=== PATIENT | male | born 1980 | race African-American/Black ===

== ENCOUNTER 2018-03-18 11:55 | Emergency (ER) | payer OTHER ==
[~2018-03-18] VITALS: Ht 185.4 cm; Wt 95.5 kg
[~2018-03-18 11:55] MED LIST: NOCURR
[2018-03-18] MEDS ORDERED: KETOROLAC TROMETHAMINE 10 MG TABLET PO ONE (13:30)
[2018-03-18 14:01] VITALS: BP 132/62
== END 2018-03-18 14:01 | disposition home or self-care (01) ==
LOC: EMS 11:55
DX: S20.212A Contusion of left front wall of thorax, initial encounter (principal); F17.210 Nicotine dependence, cigarettes, uncomplicated; F12.90 Cannabis use, unspecified, uncomplicated; V73.6XXA Passenger on bus injured in collision with car, pick-up truck or van in traffic accident, initial encounter; Y93.89 Activity, other specified; Y92.811 Bus as the place of occurrence of the external cause; Y99.8 Other external cause status
CPT/HCPCS: 99283

== ENCOUNTER 2022-06-23 18:55 | Emergency (ER) | payer MEDICAID ==
[~2022-06-23] VITALS: Ht 188 cm; Wt 70.5 kg
[2022-06-23] MEDS ORDERED: KETOROLAC TROMETHAMINE 60 MG/2 ML VIAL IM ONE (19:30)
[2022-06-23] MEDS ORDERED: BACLOFEN 10 MG TABLET PO ONE (19:30)
[2022-06-23] MEDS ORDERED: ACETAMINOPHEN/CODEINE 300-30 MG TABLET PO ONE (19:30)
[2022-06-23 20:37] VITALS: BP 129/83
[2022-06-23] MEDS ORDERED: BACL10TA PO (20:38)
[2022-06-23] MEDS ORDERED: ACET-2080 PO (20:38)
[2022-06-23] MEDS ORDERED: IBUP-1554 PO (20:38)
== END 2022-06-23 20:54 | disposition home or self-care (01) ==
LOC: EMS 18:55
DX: S13.4XXA Sprain of ligaments of cervical spine, initial encounter (principal); S33.5XXA Sprain of ligaments of lumbar spine, initial encounter; R51.9 Headache, unspecified; M41.9 Scoliosis, unspecified; F17.210 Nicotine dependence, cigarettes, uncomplicated; F12.90 Cannabis use, unspecified, uncomplicated; Z98.890 Other specified postprocedural states; V49.9XXA Car occupant (driver) (passenger) injured in unspecified traffic accident, initial encounter; Y93.89 Activity, other specified; Y92.89 Other specified places as the place of occurrence of the external cause; Y99.8 Other external cause status
CPT/HCPCS: 99284; 72040; 72070; 72100; 96372; J1885

== ENCOUNTER 2022-07-13 23:52 | Emergency (ER) | payer MEDICAID ==
[~2022-07-13] VITALS: Ht 188 cm; Wt 70.5 kg
[~2022-07-13 23:52] MED LIST changes: +ACET-2080 PO; +BACL10TA PO; +IBUP-1554 PO
[2022-07-14] MEDS ORDERED: IBUP-1554 PO (02:43)
[2022-07-14] MEDS ORDERED: CEPH-558 PO (02:43)
[2022-07-14 03:01] VITALS: BP 118/78
== END 2022-07-14 03:08 | disposition home or self-care (01) ==
LOC: EMS 07-14 02:29
DX: M70.31 Other bursitis of elbow, right elbow (principal); F17.210 Nicotine dependence, cigarettes, uncomplicated; F12.90 Cannabis use, unspecified, uncomplicated
CPT/HCPCS: 99283